=== PATIENT | female | born 1935 | race African-American/Black ===

== ENCOUNTER 2017-07-14 12:06 | Inpatient (IN) ==
[2017-07-14 14:56] LABS: MANUAL DIFF NEEDED? NO
[2017-07-14 14:59] LABS: BASO% 0.2 % (0.0-0.8); EOS# 0.13 X1000 (0.0-0.7); EOS% 2.3 % (0.0-10.0); HEMATOCRIT 29.4 % (37.0-47.0); HEMOGLOBIN 9.2 g/dL (12.0-16.0); IMM GRAN# 0.02 X1000 (0.0-0.04); IMM GRAN% 0.4 % (0.0-0.5); LYMPH# 1.88 X1000 (1.2-3.4); LYMPH% 33.2 % (20.5-51.1); MCH 29.5 PG (27-31); MCHC 31.3 g/dL (33-37); MCV 94.2 FL (81-99); MONO# 0.53 X1000 (0.11-0.59); MONO% 9.4 % (1.7-9.3); MPV 12.3 FL (7.4-10.4); NEUT% 54.5 % (42.2-75.2); PLT 136 X1000 (130-400); RBC 3.12 XMIL (4.2-5.4)
[2017-07-14 15:06] LABS: INR 0.97; PROTIME 10.2 Seconds (9.2-11.7)
[2017-07-14 15:08] LABS: CALCIUM 11.6 mg/dL (8.8-10.2); POTASSIUM 4.4 mmol/L (3.5-5.1); TOTAL BILIRUBIN 0.42 mg/dL (0.20-1.00); TOTAL PROTEIN 7.8 g/dL (6.3-8.3)
[2017-07-14 15:18] LABS: URINE MICRO REVIEW NEEDED? NO; URINE SOURCE CLEAN CATCH
[2017-07-14 15:22] LABS: BILIRUBIN URINE NEGATIVE (NEGATIVE); BLOOD URINE NEGATIVE (NEGATIVE); COLOR YELLOW; GLUCOSE URINE NEGATIVE (NEGATIVE); LEUKOCYTES URINE NEGATIVE (NEGATIVE); NITRITE URINE NEGATIVE (NEGATIVE); PH URINE 5.5; PROTEIN URINE NEGATIVE (NEGATIVE); SP GRAVITY URINE 1.014; TURBIDITY URINE CLEAR (CLEAR); UR EPITHELIAL CELLS <10 /HPF (<10); URINE BACTERIA 3+ /HPF; URINE CULTURE NEEDED? YES; URINE RBC <10 /HPF (<10); URINE WBC <10 /HPF (<10); UROBILINOGEN URINE NORMAL (NORMAL)
[2017-07-14] MEDS ORDERED: NS 1,000 ML IV ONE ×2 (17:26→18:11)
[2017-07-14] MEDS ORDERED: ZOFRAN IV PRN (18:16)
[2017-07-14 18:42] LABS: UR CREAT RANDOM 124.4 mg/dL (11-20); UR PROT RANDOM 16.9 mg/dL
[2017-07-14] MEDS: ROCEPHIN 1 GM in NS 50 ML IV SCH (18:45)
[2017-07-14] MEDS: COREG PO SCH (20:58)
[2017-07-15 06:28] LABS: HEMATOCRIT 25.2 % (37.0-47.0); MCH 30.7 PG (27-31); MCHC 31.7 g/dL (33-37); MCV 96.6 FL (81-99); MPV 11.8 FL (7.4-10.4); RBC 2.61 XMIL (4.2-5.4)
[2017-07-15 06:54] LABS: RETIC% 1.62 % (0.8-2.1); RETIC-HE 33.6 PG (28.2-36.6)
[2017-07-15 06:55] LABS: IRON SATURATION 32 %; TIBC 222 ug/dL; TOTAL IRON 71 ug/dL (49-151); UNBOUND IRON 151 ug/dL (112-346)
[2017-07-15] MEDS: NS 1,000 ML IV SCH ×2 (06:55→18:06)
[2017-07-15 07:15] LABS: FERRITIN 116 ng/mL (13-150)
[2017-07-15 07:23] LABS: ALBUMIN 3.4 g/dL (3.5-5.0); CALCIUM 12.1 mg/dL (8.8-10.2); POTASSIUM 4.2 mmol/L (3.5-5.1)
[2017-07-15] MEDS ORDERED: LOVENOX SUBQ SCH (09:00)
[2017-07-15] MEDS ORDERED: ZOLEDRONIC ACID IV ONE (09:00)
[2017-07-15] MEDS ORDERED: [UNRECOGNIZED DRUG - OTHER] IV ONE (09:00)
[2017-07-15] MEDS: PROTONIX IV SCH (09:44)
[2017-07-15] MEDS: COREG PO SCH ×2 (09:45→20:26)
[2017-07-15] MEDS: SODIUM CHLORIDE 0.9% INJ SCH (09:45)
[2017-07-15] MEDS: XANAX PO SCH (09:45)
[2017-07-15] MEDS: MIACALCIN SUBQ SCH (11:18)
[2017-07-15] MEDS: ROCEPHIN 1 GM in NS 50 ML IV SCH (18:06)
[2017-07-15] MEDS: NAMENDA PO SCH (20:26)
[2017-07-16] MEDS: PROTONIX IV SCH ×2 (05:07→07:53)
[2017-07-16] MEDS: NS 1,000 ML IV SCH (05:07)
[2017-07-16] MEDS: SODIUM CHLORIDE 0.9% INJ SCH (05:07)
[2017-07-16 06:41] LABS: MANUAL DIFF NEEDED? NO
[2017-07-16 06:49] LABS: BASO% 0.4 % (0.0-0.8); EOS# 0.12 X1000 (0.0-0.7); EOS% 2.4 % (0.0-10.0); HEMATOCRIT 27.3 % (37.0-47.0); HEMOGLOBIN 8.2 g/dL (12.0-16.0); LYMPH# 1.86 X1000 (1.2-3.4); LYMPH% 37.2 % (20.5-51.1); MCH 29.6 PG (27-31); MCV 98.6 FL (81-99); MONO# 0.37 X1000 (0.11-0.59); MONO% 7.4 % (1.7-9.3); MPV 11.7 FL (7.4-10.4); NEUT% 52.6 % (42.2-75.2); PLT 106 X1000 (130-400); RBC 2.77 XMIL (4.2-5.4)
[2017-07-16 07:05] LABS: CALCIUM 10.7 mg/dL (8.8-10.2); MAGNESIUM 1.9 mg/dL (1.5-2.7); POTASSIUM 4.3 mmol/L (3.5-5.1)
[2017-07-16] MEDS: COREG PO SCH ×2 (08:22→21:09)
[2017-07-16] MEDS: XANAX PO SCH (08:23)
[2017-07-16] MEDS: NAMENDA PO SCH ×2 (08:23→21:09)
[2017-07-16] MEDS: MIACALCIN SUBQ SCH (10:08)
[2017-07-16] MEDS: SODIUM BICARBONATE 8.4% 100 MEQ in STERILE WATER INJ. 1,000 ML IV SCH (11:54)
[2017-07-16 14:15] LABS: UR CALCIUM 4.9 mg/dL; UR CALCIUM TOTAL 83.3 mg/24 (0.0-25.0)
[2017-07-16] MEDS: ROCEPHIN 1 GM in NS 50 ML IV SCH (18:08)
[2017-07-16] MEDS: TYLENOL PO PRN (21:09)
[2017-07-17] MEDS: SODIUM BICARBONATE 8.4% 100 MEQ in STERILE WATER INJ. 1,000 ML IV SCH ×2 (03:31→18:59)
[2017-07-17] MEDS: SODIUM CHLORIDE 0.9% INJ SCH (05:18)
[2017-07-17] MEDS: PROTONIX IV SCH ×2 (05:19→07:00)
[2017-07-17 05:40] LABS: MANUAL DIFF NEEDED? NO
[2017-07-17 06:08] LABS: CALCIUM 9.1 mg/dL (8.8-10.2)
[2017-07-17 06:12] LABS: BASO% 0.2 % (0.0-0.8); EOS# 0.11 X1000 (0.0-0.7); EOS% 1.7 % (0.0-10.0); HEMATOCRIT 24.2 % (37.0-47.0); HEMOGLOBIN 7.6 g/dL (12.0-16.0); LYMPH# 1.83 X1000 (1.2-3.4); LYMPH% 28.9 % (20.5-51.1); MCH 29.2 PG (27-31); MCHC 31.4 g/dL (33-37); MCV 93.1 FL (81-99); MONO# 0.53 X1000 (0.11-0.59); MONO% 8.4 % (1.7-9.3); MPV 11.5 FL (7.4-10.4); NEUT% 60.8 % (42.2-75.2); PLT 107 X1000 (130-400)
[2017-07-17] MEDS: NAMENDA PO SCH ×2 (09:40→21:08)
[2017-07-17] MEDS: TYLENOL PO PRN (09:41)
[2017-07-17] MEDS: XANAX PO SCH (09:41)
[2017-07-17] MEDS: MIACALCIN SUBQ SCH (09:41)
[2017-07-17] MEDS: COREG PO SCH ×2 (09:41→21:08)
[2017-07-17] MEDS: AMOXIL PO SCH ×3 (09:45→21:08)
[2017-07-17] MEDS: SENSIPAR PO SCH (09:47)
[2017-07-17 16:30] LABS: HEMATOCRIT 26.8 % (37.0-47.0); HEMOGLOBIN 8.5 g/dL (12.0-16.0)
[2017-07-17 16:47] LABS: CALCIUM 9.2 mg/dL (8.8-10.2); POTASSIUM 3.9 mmol/L (3.5-5.1)
[2017-07-17] MEDS: SODIUM BICARBONATE 8.4% 100 MEQ in D5W 1,000 ML IV SCH (18:35)
[2017-07-18] MEDS: PROTONIX IV SCH (06:11)
[2017-07-18] MEDS: SODIUM CHLORIDE 0.9% INJ SCH (06:11)
[2017-07-18 06:33] LABS: MANUAL DIFF NEEDED? NO
[2017-07-18 06:59] LABS: BASO% 0.2 % (0.0-0.8); EOS# 0.09 X1000 (0.0-0.7); EOS% 1.6 % (0.0-10.0); HEMOGLOBIN 7.5 g/dL (12.0-16.0); LYMPH% 36.4 % (20.5-51.1); MCH 29.1 PG (27-31); MCHC 31.3 g/dL (33-37); MONO# 0.36 X1000 (0.11-0.59); MONO% 6.2 % (1.7-9.3); MPV 11.7 FL (7.4-10.4); NEUT% 55.6 % (42.2-75.2); PLT 107 X1000 (130-400); RBC 2.58 XMIL (4.2-5.4)
[2017-07-18 07:05] LABS: ALBUMIN 3.1 g/dL (3.5-5.0); CALCIUM 9.4 mg/dL (8.8-10.2); MAGNESIUM 1.6 mg/dL (1.5-2.7); POTASSIUM 3.9 mmol/L (3.5-5.1); TOTAL BILIRUBIN 0.32 mg/dL (0.20-1.00); TOTAL PROTEIN 5.9 g/dL (6.3-8.3)
[2017-07-18] MEDS: NAMENDA PO SCH ×2 (09:20→22:17)
[2017-07-18] MEDS: XANAX PO SCH (09:20)
[2017-07-18] MEDS: AMOXIL PO SCH ×2 (09:20→22:17)
[2017-07-18] MEDS: SENSIPAR PO SCH (09:20)
[2017-07-18] MEDS: COREG PO SCH ×2 (09:20→22:17)
[2017-07-18] MEDS ORDERED: NS 500 ML ONE (12:25)
[2017-07-18] MEDS ORDERED: NS 500 ML IV ONE (13:00)
[2017-07-18] MEDS: SODIUM BICARBONATE 8.4% 100 MEQ in D5W 1,000 ML IV SCH (17:19)
[2017-07-18] MEDS: MIRALAX PO SCH (17:19)
[2017-07-18] MEDS: LACTULOSE PO SCH (22:18)
[2017-07-19] MEDS: SODIUM CHLORIDE 0.9% INJ SCH (06:17)
[2017-07-19] MEDS: PROTONIX IV SCH (06:17)
[2017-07-19 06:50] LABS: CALCIUM 8.8 mg/dL (8.8-10.2); POTASSIUM 3.8 mmol/L (3.5-5.1)
[2017-07-19 07:08] LABS: HEMATOCRIT 26.7 % (37.0-47.0); HEMOGLOBIN 8.6 g/dL (12.0-16.0); MCH 30.2 PG (27-31); MCHC 32.2 g/dL (33-37); MCV 93.7 FL (81-99); MPV 11.9 FL (7.4-10.4); RBC 2.85 XMIL (4.2-5.4)
[2017-07-19] MEDS: LACTULOSE PO SCH ×2 (09:29→20:24)
[2017-07-19] MEDS: SENSIPAR PO SCH (09:29)
[2017-07-19] MEDS: AMOXIL PO SCH ×2 (09:29→20:24)
[2017-07-19] MEDS: COREG PO SCH ×2 (09:29→20:24)
[2017-07-19] MEDS: NAMENDA PO SCH ×2 (09:29→20:24)
[2017-07-19] MEDS: XANAX PO SCH (09:30)
[2017-07-19] MEDS: MIRALAX PO SCH (09:30)
[2017-07-19] MEDS ORDERED: FLEET ENEMA PR ONE (18:24)
[2017-07-20 06:25] LABS: HEMOGLOBIN 8.9 g/dL (12.0-16.0); MCH 30.3 PG (27-31); MCHC 31.8 g/dL (33-37); MCV 95.2 FL (81-99); MPV 11.9 FL (7.4-10.4); RBC 2.94 XMIL (4.2-5.4)
[2017-07-20] MEDS: TYLENOL PO PRN (06:26)
[2017-07-20] MEDS: PROTONIX IV SCH (06:33)
[2017-07-20 06:34] LABS: CALCIUM 8.4 mg/dL (8.8-10.2); POTASSIUM 4.2 mmol/L (3.5-5.1)
[2017-07-20] MEDS: NAMENDA PO SCH (09:21)
[2017-07-20] MEDS: MIRALAX PO SCH (09:21)
[2017-07-20] MEDS: SENSIPAR PO SCH (09:22)
[2017-07-20] MEDS: AMOXIL PO SCH (09:23)
[2017-07-20] MEDS: LACTULOSE PO SCH (09:23)
[2017-07-20] MEDS: COREG PO SCH (09:23)
[2017-07-20] MEDS: XANAX PO SCH (10:14)
[2017-07-20] MEDS ORDERED: ULTRAM ER PO PRN ×2 (11:00→11:03)
[2017-07-20] MEDS ORDERED: ROBAXIN PO SCH (11:15)
[2017-07-20] MEDS ORDERED: ULTRAM PO PRN (11:47)
[2017-07-20 13:08] VITALS: BP 124/57
[2017-07-24] MEDS ORDERED: FOSAMAX PO SCH (07:00)
== END 2017-07-20 19:03 | disposition home or self-care (01) ==
LOC: ED 12:06 → 4N 19:45 → SUATTDRO 19:45
PROVIDERS: ATTEND Internal Medicine